=== PATIENT | female | born 1960 | race Caucasian/White ===

== ENCOUNTER 2020-09-10 13:18 | Emergency (ER) | payer BC ==
[2020-09-10] MEDS ORDERED: Sodium Chloride 0.9% 10 ML Syringe FLUSH PRN (13:45)
[2020-09-10] MEDS ORDERED: Alum Hydrox/Mag Hydrox/Simeth 30 ML, Lidocaine 2% 15 ML PO ONE ×2 (13:45)
--- NOTE | 2020-09-10 14:09 | EDM.PDOC ---
ED HPI GENERAL MEDICAL PROBLEM - General Chief Complaint: Chest Pain Stated Complaint: CHEST PAIN Time Seen by Provider: 09/10/20 13:24 Source of Information: Reports: Patient History Limitations: Reports: No Limitations - History of Present Illness INITIAL COMMENTS - FREE TEXT/NARRATIVE: 59-year-old female with complaints of left sided chest pain that has been ongoing for approximately a year. Patient reports that she feels like it may be due to stress as she has had a significant amount of stress in the past year. She states that it is worse at night when she goes to bed however it is better when she lays on her left side to sleep. She states she Was seen by Tere Lee last week and she does have an appointment scheduled with the therapist phys Dr. Ferreira next week. She states she had an EKG done last week at the clinic which showed changes. States that she intermittently develops nausea due to the chest pressure and today at the time of assessment states that the radiating into her jaw. Denies syncopal episodes, palpitations, nausea or vomiting. Patient states she has frequent diarrhea associated with the chest pressure. Left Upper Chest Pain Score (Numeric/FACES): 2 - Related Data Allergies Allergy/AdvReac Type Severity Reaction Status Date / Time No Known Allergies Allergy Verified 09/10/20 13:34 Past Medical History Cardiovascular History: Reports: Other (See Below) Other Cardiovascular History: chest pain, recent changes in EKG - Infectious Disease History Infectious Disease History: Reports: Chicken Pox Social & Family History - Family History Family Medical History: No Pertinent Family History - Tobacco Use Tobacco Use Status *Q: Never Tobacco User Second Hand Smoke Exposure: No - Caffeine Use Caffeine Use: Reports: Coffee - Recreational Drug Use Recreational Drug Use: No ED ROS GENERAL - Review of Systems Review Of Systems: See Below Constitutional: Reports: No Symptoms. Denies: Fever, Chills, Diaphoresis HEENT: Reports: No Symptoms Respiratory: Reports: No Symptoms Cardiovascular: Reports: Chest Pain (Specifically chest wall), Lightheadedness. Denies: Dyspnea on Exertion, Edema, Orthopnea, Palpitations Endocrine: Reports: Fatigue GI/Abdominal: Reports: Diarrhea. Denies: Abdominal Pain, Constipation, Nausea, Vomiting : Reports: No Symptoms Musculoskeletal: Reports: No Symptoms Skin: Reports: No Symptoms Neurological: Reports: No Symptoms Psychiatric: Reports: Anxiety Hematologic/Lymphatic: Reports: No Symptoms Immunologic: Reports: No Symptoms ED EXAM, GENERAL - Physical Exam Exam: See Below Exam Limited By: No Limitations General Appearance: Alert, WD/WN, Anxious Eye Exam: Bilateral Eye: PERRL Ears: Normal External Exam, Hearing Grossly Normal Nose: Normal Inspection Throat/Mouth: Normal Inspection, Normal Voice, No Airway Compromise Head: Atraumatic, Normocephalic Neck: Normal Inspection, Supple, Non-Tender, Full Range of Motion Respiratory/Chest: No Respiratory Distress, Lungs Clear, Normal Breath Sounds. No: Chest Non-Tender (Left chest wall and sternal tenderness with palpation) Cardiovascular: Normal Peripheral Pulses, Regular Rate, Rhythm, No Edema, No Murmur Peripheral Pulses: 2+: Radial (L), Radial (R), Dorsalis Pedis (L), Dorsalis Pedis (R) GI/Abdominal: Normal Bowel Sounds, Soft, Non-Tender, No Distention (Female) Exam: Deferred Rectal (Female) Exam: Deferred Back Exam: Normal Inspection, Full Range of Motion Extremities: Normal Inspection, Normal Range of Motion, Non-Tender, No Pedal Edema, Normal Capillary Refill Neurological: Alert, Oriented, Normal Cognition Psychiatric: Anxious Skin Exam: Warm, Dry, Intact, Normal Color, No Rash Lymphatic: No Adenopathy #1 Interpretation EKG Date: 09/10/20 Time: 13:27 Rhythm: NSR Rate (Beats/Min): 78 [place]: Normal P-Wave: Present QRS: Normal ST-T: Normal QT: Normal Comparison: NA - No Prior EKG EKG Interpretation Comments: Per Dr. Garner interpretation: sinus rhythm, RSR' in V1 or V2, right VCD or RVH, Borderline T abnormalities, anterior leads, baseline wander in leads V6 Course - Vital Signs Text/Narrative:: 59-year-old female presenting with left chest wall pain. Patient states worse when she lays on her right side better when she lays on her left to sleep. She states it worsens when she goes to bed at nighttime. This has been an ongoing problem for the past year or so. She contributed that to increased stress and anxiety. States she does have a history of reflux however once she stopped taking her co-Q10 her reflux resolved. Upon assessment, heart rate is regular, and lung sounds are clear to all wallace. Patient states worsening pain with palpation to the sternum and left chest wall. She denies diaphoresis or pa lpitations associated with this. No recent fever, chills, nausea or vomiting however she states when the pain worsens she has diarrhea. I have ordered labs for the patient, saline lock, chest x-ray and a GI cocktail. Last Recorded V/S: Last Vital Signs Temp 96.9 F 09/10/20 13:30 Pulse 77 09/10/20 13:30 Resp 18 09/10/20 13:30 BP 122/78 09/10/20 13:30 Pulse Ox 95 09/10/20 13:30 - Orders/Labs/Meds Orders: Active Orders 24 hr Category Date Time Status EKG Documentation Completion [RC] ASDIRECTED Care 09/10/20 13:29 Active Chest 1V Frontal [CR] Stat Exams 09/10/20 13:45 Taken Sodium Chloride 0.9% [Saline Flush] Med 09/10/20 13:45 Active 10 ml FLUSH ASDIRECTED PRN Saline Lock Insert [OM.PC] Stat Oth 09/10/20 13:45 Ordered EKG 12 Lead [EK] Stat Ther 09/10/20 13:29 Ordered Medication Orders Sodium Chloride (Saline Flush) 10 ml FLUSH ASDIRECTED PRN PRN Reason: Keep Vein Open Last Admin: 09/10/20 14:15 Dose: 10 ml Documented by: BARRIE Labs: Laboratory Tests 09/10/20 09/10/20 09/10/20 Range/Units 13:28 13:28 13:28 WBC 3.53 L (3.98-10.04) K/mm3 RBC 4.44 (3.98-5.22) M/mm3 Hgb 13.0 (11.2-15.7) gm/dl Hct 40.8 (34.1-44.9) % MCV 91.9 (79.4-94.8) fl MCH 29.3 (25.6-32.2) pg MCHC 31.9 L (32.2-35.5) g/dl RDW Std Deviation 43.9 (36.4-46.3) fL Plt Count 201 (182-369) K/mm3 MPV 10.7 (9.4-12.3) fl Neut % (Auto) 45.6 (34.0-71.1) % Lymph % (Auto) 46.2 (19.3-51.7) % [place] % (Auto) 7.6 (4.7-12.5) % Eos % (Auto) 0.3 L (0.7-5.8) Baso % (Auto) 0.3 (0.1-1.2) % Neut # (Auto) 1.61 (1.56-6.13) K/mm3 Lymph # (Auto) 1.63 (1.18-3.74) K/mm3 [place] # (Auto) 0.27 (0.24-0.36) K/mm3 Eos # (Auto) 0.01 L (0.04-0.36) K/mm3 Baso # (Auto) 0.01 (0.01-0.08) K/mm3 Sodium 141 (136-145) mEq/L Potassium 3.8 (3.5-5.1) mEq/L Chloride 103 (98-107) mEq/L Carbon Dioxide 29 (21-32) mEq/L Anion Gap 12.8 (5-15) BUN 12 (7-18) mg/dL Creatinine 0.8 (0.55-1.02) mg/dL Est Cr Clr Drug Dosing 70.01 mL/min Estimated GFR (MDRD) > 60 (>60) mL/min BUN/Creatinine Ratio 15.0 (14-18) Glucose 113 H (74-106) mg/dL Calcium 9.1 (8.5-10.1) mg/dL Magnesium 2.0 (1.8-2.4) mg/dl Total Bilirubin 0.3 (0.2-1.0) mg/dL AST 21 (15-37) U/L ALT 34 (14-59) U/L Alkaline Phosphatase 79 (46-116) U/L Troponin I < 0.017 (0.00-0.056) ng/mL C-Reactive Protein <0.2 (<1.0) mg/dL NT-Pro-B Natriuret Pep 38 (0-125) pg/mL Total Protein 7.6 (6.4-8.2) g/dl Albumin 4.0 (3.4-5.0) g/dl Globulin 3.6 gm/dL Albumin/Globulin Ratio 1.1 (1-2) TSH 3rd Generation 4.096 H (0.358-3.74) uIU/mL Meds: Medications Generic Name Dose Route Start Last Admin Trade Name Freq PRN Reason Stop Dose Admin Sodium Chloride 10 ml 09/10/20 13:45 09/10/20 14:15 Saline Flush FLUSH 10 ml ASDIRECTED PRN Administration Keep Vein Open Discontinued Medications Generic Name Dose Route Start Last Admin Trade Name Freq PRN Reason Stop Dose Admin Al Hydroxide/Mg Hydroxide 30 0 ml 09/10/20 13:45 09/10/20 14:14 ml/ Lidocaine HCl 15 ml PO 09/10/20 13:46 45 ml ONETIME ONE Administration - Re-Assessments/Exams Free Text/Narrative Re-Assessment/Exam: 09/10/20 14:30 WBC 3.53, hemoglobin 13.0, hematocrit 40.8, chemistry reveals a sodium of 141, potassium 3.8, carbon dioxide 29, anion gap 12.8, BUN 12, creatinine 0.8, glucose 113, magnesium 2.0, troponin less than 0.017, C-reactive protein less than 0.2, proBNP 38, TSH 4.096 Nothing acute is appreciated on portable chest x-ray Patient's TSH level is slightly elevated at 4.096. She states she recently saw her ACADEMIC COMPUTING DIRECTOR, Mela toledo last week who did check labs however she has not heard from her since. Recommend that she phone Mela Ortiz on Sunday for recommendations regarding her TSH. Keep her currently scheduled appointment with cardiology. Departure - Departure Time of Disposition: 14:31 Disposition: Home, Self-Care 01 Condition: Good Clinical Impression: Atypical chest pain Instructions: Nonspecific Chest Pain, Adult, [id number] Referrals: Mela Toledo, [employer] [Primary Care Provider] - Forms: ED Department Discharge Additional Instructions: You are seen in the emergency department today with complaints of left chest wall pain. Full cardiac work-up was completed and this was unremarkable. However your TSH level is slightly elevated. Recommend that you follow-up with Mela toledo early next week to discuss options regarding your thyroid levels. Keep your currently scheduled cardiac appointment. May use ice or heat on left chest wall. Recommend you take ibuprofen 600 mg every 6 hours for the next 48 hours or Aleve 2 tabs every 12 hours for the next 48 hours as your chest pain is likely due to musculoskeletal origin. Should your condition worsen or change do not hesitate to return to the emergency department Sepsis Event Note (ED) - Evaluation Sepsis Screening Result: No Definite Risk - Focused Exam Vital Signs: Vital Signs Temp Pulse Resp BP Pulse Ox 09/10/20 13:30 96.9 F 77 18 122/78 95 - My Orders Last 24 Hours: My Active Orders 09/10/20 13:29 EKG Documentation Completion [RC] ASDIRECTED EKG 12 Lead [EK] Stat 09/10/20 13:45 Chest 1V Frontal [CR] Stat Sodium Chloride 0.9% [Saline Flush] 10 ml FLUSH ASDIRECTED PRN Saline Lock Insert [OM.PC] Stat - Assessment/Plan Last 24 Hours: My Active Orders 09/10/20 13:29 EKG Documentation Completion [RC] ASDIRECTED EKG 12 Lead [EK] Stat 09/10/20 13:45 Chest 1V Frontal [CR] Stat Sodium Chloride 0.9% [Saline Flush] 10 ml FLUSH ASDIRECTED PRN Saline Lock Insert [OM.PC] Stat
--- NOTE | 2020-09-11 09:28 | CR ---
Chest: Portable view of the chest was obtained. Comparison: No prior chest imaging is available. Heart size and mediastinum are normal. Lungs are clear with no acute parenchymal change. Bony structures show nothing acute. Impression: 1. Nothing acute is seen on portable chest x-ray. Diagnostic code #1
== END 2020-09-10 14:41 | disposition home or self-care (01) ==
LOC: JD.ED 13:18
DX: R07.89 Other chest pain (principal)
CPT/HCPCS: 36415; 71045; 80053; 83735; 83880; 84443; 84484; 85025; 86140; 93005; 99285; A9270; 93010; 99283

== ENCOUNTER 2023-12-11 06:45 | Day surgery (SDC) | payer BC ==
[2023-12-11] MEDS: Lactated Ringers 1,000 ML IV SCH (07:00)
[2023-12-11] MEDS ORDERED: Sodium Chloride 0.9% 10 ML Syringe FLUSH SCH (07:00)
[2023-12-11] MEDS ORDERED: Sodium Chloride 0.9% 10 ML Syringe FLUSH PRN (07:00)
[2023-12-11] MEDS ORDERED: Propofol 200 MG/20 ML SDV ONE (07:17)
[2023-12-11] MEDS ORDERED: fentaNYL 250 MCG/5 ML SDV ONE (07:22)
[2023-12-11] MEDS ORDERED: Rocuronium 50 MG/5 ML Vial ONE (07:23)
[2023-12-11] MEDS ORDERED: Midazolam 1 MG/ML 2 ML SDV ONE (07:23)
[2023-12-11] MEDS ORDERED: Lidocaine 1% 4 ML ONE (07:43)
[2023-12-11] MEDS ORDERED: Ondansetron 4 MG/2 ML SDV ONE (07:45)
[2023-12-11] MEDS ORDERED: Ketorolac 30 MG/ML SDV ONE (07:46)
[2023-12-11] MEDS ORDERED: Dexamethasone 4 MG/ML 5 ML MDV ONE (07:46)
[2023-12-11] MEDS ORDERED: ceFAZolin 2 GM Vial ONE (07:46)
[2023-12-11] MEDS: Bupivacaine 0.5% 10 ML SDV ONE (08:44)
[2023-12-11] MEDS ORDERED: HYDROmorphone 0.5 MG/0.5 ML Syringe ONE ×2 (08:50→08:56)
[2023-12-11] MEDS ORDERED: diphenhydrAMINE 50 MG/ML SDV ONE (08:57)
[2023-12-11] MEDS ORDERED: Lactated Ringers 500 ML ONE (09:08)
[2023-12-11] MEDS ORDERED: Lactated Ringers 1,000 ML ONE (09:08)
[2023-12-11] MEDS ORDERED: fentaNYL 100 MCG/2 ML SDV IVPUSH PRN (10:30)
[2023-12-11] MEDS: HYDROmorphone 0.5 MG/0.5 ML Syringe IVPUSH PRN (10:44)
[2023-12-11] MEDS ORDERED: Acetaminophen/oxyCODONE 325-5 MG Tab PO PRN ×2 (11:17→11:21)
[2023-12-11] MEDS: Acetaminophen/oxyCODONE 325-5 MG Tab PO PRN (13:16)
== END 2023-12-11 13:40 | disposition home or self-care (01) ==
LOC: JD.SDS 06:45
PROVIDERS: ATTEND Obstetrics & Gynecology
DX: D27.0 Benign neoplasm of right ovary (principal); N83.8 Other noninflammatory disorders of ovary, fallopian tube and broad ligament; N84.0 Polyp of corpus uteri; E78.5 Hyperlipidemia, unspecified; I45.10 Unspecified right bundle-branch block; R91.1 Solitary pulmonary nodule; Z79.899 Other long term (current) drug therapy
CPT/HCPCS: 58558; 58661; A9270; C1782; J0665; J0690; J1100; J1170; J1200; J1596; J1885; J2250; J2405; J2704; J3010; J7120; J3490

== ENCOUNTER 2024-03-27 06:45 | Day surgery (SDC) | payer BC ==
[~2024-03-27 06:45] MED LIST: Sodium Chloride 0.9% 10 ML Syringe FLUSH PRN; Sodium Chloride 0.9% 10 ML Syringe FLUSH SCH
[2024-03-27] MEDS: Lactated Ringers 1,000 ML IV SCH (07:00)
[2024-03-27] MEDS ORDERED: Lidocaine 1% 4 ML ONE (07:15)
[2024-03-27] MEDS ORDERED: fentaNYL 100 MCG/2 ML SDV ONE (07:15)
[2024-03-27] MEDS ORDERED: Propofol 200 MG/20 ML SDV ONE (07:15)
== END 2024-03-27 08:50 | disposition home or self-care (01) ==
LOC: JD.SDS 06:45
PROVIDERS: ATTEND Surgery
DX: Z12.11 Encounter for screening for malignant neoplasm of colon (principal); D12.5 Benign neoplasm of sigmoid colon; E78.00 Pure hypercholesterolemia, unspecified
CPT/HCPCS: 45385; J2704; J3010; J7120; 00811; J3490